=== PATIENT | male | born 1940 | race Caucasian/White ===

== ENCOUNTER → 2020-11-10 11:05 | Outpatient (CLI) | payer MEDICARE, SELFPAY ==
[2020-11-10] MEDS: COVID-19 VACC #1, MRNA(MOD) 100 MCG/0.5 ML VIAL IM (11:16)
--- NOTE | 2020-11-10 11:38 | PC.NURSE ---
Hx of anaphylaxis to penicillin; pt staying for 30 min observation
== END ==
PROVIDERS: Visit Provider Internal Medicine
DX: Z23 Encounter for immunization (principal)
CPT/HCPCS: 0011A; 91301

== ENCOUNTER → 2020-12-08 11:18 | Outpatient (CLI) | payer MEDICARE, SELFPAY ==
[2020-12-08] MEDS: COVID-19 VACC #2, MRNA(MOD) 100 MCG/0.5 ML VIAL IM (11:33)
== END ==
PROVIDERS: Visit Provider Internal Medicine
DX: Z23 Encounter for immunization (principal)
CPT/HCPCS: 0012A; 91301

== ENCOUNTER → 2021-08-25 09:54 | Outpatient (CLI) | payer MEDICARE, SELFPAY ==
[2021-08-25] MEDS: COVID-19 VACC #3, MRNA(MOD) 50 MCG/0.25 ML VIAL IM (10:00)
== END ==
PROVIDERS: Visit Provider Internal Medicine
DX: Z23 Encounter for immunization (principal)
CPT/HCPCS: 0013A; 91301

== ENCOUNTER → 2023-08-21 08:03 | Outpatient (CLI) | payer MEDICARE, OTHER, SELFPAY ==
[2023-08-21 08:55] LABS: Add Manual Diff / Slide Review NO; Basophils Absolute Auto 100 /uL (0-100); Basophils Percent Auto 1.3 % (0-2); Eosinophils Absolute Auto 200 /uL (0-450); Eosinophils Percent Auto 3.8 % (2-4); Hematocrit 42.2 % (41-53); Hemoglobin 14.3 g/dL (13.5-17.5); Lymphocytes Absolute Auto 1000 /uL (1100-4500); Lymphocytes Percent Auto 16.3 % (25-40); Mean Corpuscular HGB Conc 33.9 % (30-36); Mean Corpuscular Volume 91.4 fL (80-100); Monocytes Absolute Auto 700 /uL (0-900); Neutrophils Absolute Auto 4000 /uL (1500-7000); Neutrophils Percent Auto 67.6 % (50-75); Platelet Count 165 X10^3/uL (150-400); Red Blood Cell Count 4.61 X10^6/uL (4.5-5.9)
[2023-08-21 09:30] LABS: BUN Creatinine Ratio 14.7 (6-22); Blood Urea Nitrogen 14 mg/dL (9-20); Calcium 10.2 mg/dL (8.4-10.2); Carbon Dioxide 29 mmol/L (22-32); Chloride 100 mmol/L (98-107); Estimated Glomerular Filt Rate > 60 mL/min (>60); Glucose 115 mg/dL (80-110); HEMOLYSIS < 15 (0-50); Potassium 4.6 mmol/L (3.4-5.1); Sodium 137 mmol/L (137-145)
[2023-08-26 10:58] LABS: Percent Free Testosterone 2.56 % (1.50-4.20); Testosterone Free 9.87 ng/dL (5.00-21.00); Testosterone Total 385.4 ng/dL (264.0-916.0)
== END ==
PROVIDERS: PCP Family Medicine; Referring Provider Family Medicine; Visit Provider Family Medicine
DX: Z00.00 Encounter for general adult medical examination without abnormal findings (principal); N52.9 Male erectile dysfunction, unspecified
CPT/HCPCS: 36415; 80048; 84402; 84403; 85025

== ENCOUNTER → 2023-09-02 07:29 | Outpatient (CLI) | payer MEDICARE, OTHER, SELFPAY ==
[2023-09-03 08:13] LABS: Fecal Immunochemical Test Negative (Negative)
== END ==
PROVIDERS: PCP Family Medicine; Referring Provider Family Medicine; Visit Provider Family Medicine
DX: Z86.010 Personal history of colon polyps (principal)
CPT/HCPCS: 82274

== ENCOUNTER → 2023-12-31 13:46 | Outpatient (CLI) | payer MEDICARE, OTHER, SELFPAY ==
[2023-12-31 15:03] LABS: Hemoglobin A1C% w Est Avg Glu 5.5 % (4.0-6.0)
[2023-12-31 15:13] LABS: HEMOLYSIS < 15 (0-50); Iron 70 ug/dL (49-181)
[2023-12-31 15:25] LABS: Percent Iron Saturation 26 % (20-50); Total Iron Binding Capacity 272 ug/dL (261-462); Transferrin 223 mg/dL (206-381)
[2023-12-31 15:53] LABS: Ferritin 325 ng/mL (18-464)
[2023-12-31 16:07] LABS: Vitamin B12 Reflex MMA if <400 904 pg/mL (239-931)
== END ==
LOC: LAB 13:48
PROVIDERS: PCP Family Medicine; Referring Provider Family Medicine; Visit Provider Family Medicine
DX: R79.89 Other specified abnormal findings of blood chemistry (principal); Z86.39 Personal history of other endocrine, nutritional and metabolic disease; R53.83 Other fatigue; R73.09 Other abnormal glucose
CPT/HCPCS: 36415; 82607; 82728; 83036; 83540; 83550

== ENCOUNTER → 2024-05-05 12:30 | Outpatient (CLI) | payer MEDICARE, OTHER, SELFPAY ==
[2024-05-05 13:45] LABS: Add Manual Diff / Slide Review NO; Basophils Absolute Auto 0 /uL (0-100); Basophils Percent Auto 0.7 % (0-2); Eosinophils Absolute Auto 200 /uL (0-450); Eosinophils Percent Auto 4.6 % (2-4); Hematocrit 41.4 % (41-53); Hemoglobin 14.2 g/dL (13.5-17.5); Lymphocytes Absolute Auto 1000 /uL (1100-4500); Lymphocytes Percent Auto 22.3 % (25-40); Mean Corpuscular HGB Conc 34.2 % (30-36); Mean Corpuscular Hemoglobin 31.4 PG (26-34); Mean Corpuscular Volume 91.8 fL (80-100); Monocytes Absolute Auto 500 /uL (0-900); Monocytes Percent Auto 10.2 % (3-14); Neutrophils Absolute Auto 2800 /uL (1500-7000); Neutrophils Percent Auto 62.2 % (50-75); Platelet Count 168 X10^3/uL (150-400); Red Blood Cell Count 4.51 X10^6/uL (4.5-5.9); Red Cell Distribution Width 13.7 % (11.6-14.8); White Blood Cell Count 4.6 X10^3/uL (4.5-11.0)
[2024-05-05 14:58] LABS: Ferritin 307 ng/mL (18-464)
[2024-05-06 09:36] LABS: Homocysteine 10.6 umol/L (0.0-21.3)
== END ==
PROVIDERS: PCP Family Medicine; Referring Provider Naturopath; Visit Provider Naturopath
DX: E72.11 Homocystinuria (principal); R77.8 Other specified abnormalities of plasma proteins
CPT/HCPCS: 36415; 82728; 83090; 85025

== ENCOUNTER → 2024-10-29 15:44 | Outpatient (CLI) | payer MEDICARE, OTHER, SELFPAY ==
[2024-10-29 16:50] LABS: Prostate Specific Antigen 6.28 ng/mL (0.10-4.00)
== END ==
PROVIDERS: PCP Family Medicine; Referring Provider Physician Assistant; Visit Provider Physician Assistant
DX: R97.20 Elevated prostate specific antigen [PSA] (principal); M54.50 Low back pain, unspecified
CPT/HCPCS: 36415; 84153

== ENCOUNTER → 2024-12-04 10:37 | Outpatient (CLI) | payer MEDICARE, OTHER, SELFPAY ==
--- NOTE | 2024-12-04 10:38 | DI.MRI.S_ITS ---
PROCEDURE: MR LUMBAR SPINE WO CON INDICATIONS: Persistent LBP no improvement w/PT x 6 mos TECHNIQUE: Noncontrast sagittal T1 spin echo and T2 fast echo, sagittal STIR, and T2 fast spin echo through the lumbar spine. In cases with scoliosis, additional coronal T2 fast spin echo may be performed. COMPARISON: None. FINDINGS: Image quality: Excellent. Alignment and Curvature: There is normal bony alignment. Bone Marrow: Marrow is of normal overall signal. No acute vertebral body compression fractures. Spinal Cord: Conus medullaris terminates at the T12-L1 level. Visualized cord demonstrates normal signal and size. Paraspinous Soft Tissues: No paravertebral masses. T12-L1: Normal appearance. L1-L2: Normal appearance. L2-L3: Mild disc bulge. Mild facet hypertrophy. Borderline canal stenosis. No foraminal stenosis. L3-L4: Disc bulge. Facet and ligament hypertrophy. Moderate canal stenosis. No significant foraminal stenosis. L4-L5: Disc bulge. Prominent facet and ligament hypertrophy. Moderate to severe canal stenosis. Uyqg-[id number] bilateral foraminal stenosis. L5-S1: Disc bulge. Mild facet hypertrophy. No canal stenosis or significant foraminal stenosis. IMPRESSION: 1. Multilevel underlying facet arthropathy. 2. Canal stenosis is borderline at L2-L3, moderate at L3-L4, and moderate to severe at L4-L5. Dictated by: Jordan Barnett M.D. on 12/04/2024 at 16:31 Approved by: Jordan Barnett M.D. on 12/04/2024 at 16:33
== END ==
PROVIDERS: PCP Family Medicine; Referring Provider Physician Assistant; Visit Provider Physician Assistant
DX: M47.816 Spondylosis without myelopathy or radiculopathy, lumbar region (principal); M47.817 Spondylosis without myelopathy or radiculopathy, lumbosacral region; M48.061 Spinal stenosis, lumbar region without neurogenic claudication; M54.50 Low back pain, unspecified
CPT/HCPCS: 72148

== ENCOUNTER → 2025-03-25 07:56 | Outpatient (CLI) | payer MEDICARE, OTHER, SELFPAY ==
[2025-03-25 08:21] LABS: Add Manual Diff / Slide Review NO; Basophils Absolute Auto 0 /uL (0-100); Basophils Percent Auto 0.6 % (0-2); Eosinophils Absolute Auto 300 /uL (0-450); Eosinophils Percent Auto 5.4 % (2-4); Hematocrit 43.8 % (41-53); Hemoglobin 14.6 g/dL (13.5-17.5); Lymphocytes Absolute Auto 1100 /uL (1100-4500); Lymphocytes Percent Auto 22.8 % (25-40); Mean Corpuscular HGB Conc 33.4 % (30-36); Mean Corpuscular Hemoglobin 31.1 PG (26-34); Monocytes Absolute Auto 500 /uL (0-900); Monocytes Percent Auto 11.2 % (3-14); Neutrophils Absolute Auto 2900 /uL (1500-7000); Platelet Count 172 X10^3/uL (150-400); Red Blood Cell Count 4.71 X10^6/uL (4.5-5.9); Red Cell Distribution Width 14.4 % (11.6-14.8); White Blood Cell Count 4.8 X10^3/uL (4.5-11.0)
[2025-03-25 08:37] LABS: HEMOLYSIS < 15 (0-50); Iron 104 ug/dL (49-181)
[2025-03-25 08:40] LABS: Alanine Aminotransferase 22 IU/L (<50); Albumin 4.4 g/dL (3.5-5.0); Albumin Globulin Ratio 1.6 (1.0-2.8); Alkaline Phosphatase 55 U/L (38-126); Aspartate Aminotransferase 27 IU/L (17-59); BUN Creatinine Ratio 18.4 (6-22); Bilirubin Total 0.9 mg/dL (0.2-1.3); Blood Urea Nitrogen 19 mg/dL (9-20); Calcium 9.5 mg/dL (8.4-10.2); Carbon Dioxide 27 mmol/L (22-32); Chloride 104 mmol/L (98-107); Estimated Glomerular Filt Rate > 60 mL/min (>60); Globulin 2.7 g/dL (1.7-4.1); Glucose 95 mg/dL (70-99); Potassium 4.5 mmol/L (3.4-5.1); Sodium 138 mmol/L (137-145); Total Protein 7.1 g/dL (6.3-8.2)
[2025-03-25 08:49] LABS: Percent Iron Saturation 38 % (20-50); Total Iron Binding Capacity 275 ug/dL (261-462); Transferrin 215 mg/dL (206-381)
[2025-03-25 09:12] LABS: HEMOLYSIS < 15 (0-50); Prostate Specific Antigen Scrn 7.51 ng/mL (0.1-4.0)
[2025-03-25 09:28] LABS: Vitamin B12 > 1000 pg/mL (239-931)
== END ==
PROVIDERS: PCP Family Medicine; Referring Provider Family Medicine; Visit Provider Family Medicine
DX: R97.20 Elevated prostate specific antigen [PSA] (principal); Z12.5 Encounter for screening for malignant neoplasm of prostate; R39.9 Unspecified symptoms and signs involving the genitourinary system; Z86.39 Personal history of other endocrine, nutritional and metabolic disease
CPT/HCPCS: 36415; 80053; 82607; 83090; 83540; 83550; 85025; G0103

== ENCOUNTER 2025-07-06 11:51 | Day surgery (SDC) | payer MEDICARE, OTHER, SELFPAY ==
--- NOTE | 2025-07-06 | PATH_ITS ---
[facility] Accession Number: [id number] No. of containers..04 Tissue . 01 Material submitted: . PART A: stomach - ANTRAL PART B: esophagus - ESOPHAGUS PART C: colon - CECAL MASS PART D: colon - COLON,ASCENDING POLYP . 01 Diagnosis: A. ANTRUM: Gastric mucosa with focal mild chronic gastritis. No Helicobacter pylori organisms identified on H/E slide. No intestinal metaplasia, dysplasia, or malignancy. . B. 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 No dysplasia or malignancy. . C. CECAL MASS: Fragments of tubulovillous adenoma. No high-grade dysplasia or malignancy. Deeper level examination performed. See comment. . D. ASCENDING COLON POLYP: Tubular adenoma. [facility] 07/13/2025 1155 Local . 01 Comment: B. 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 Correlation with endoscopic appearance is recommended. . C. The clinical appearance of mass is noted and correlation with clinical appearance is recommended to ensure that the lesion is removed to rule out the possibility of an unsampled higher grade lesion. No invasive malignancy is seen in the biopsy sections. . 01 Electronically signed: . Brittny King MD, Pathologist NPI- [id number] . 01 Gross description: . Received are four formalin-filled containers each labeled with the patient's name. . A. In a container labeled antral, are two fragments of dixon, soft tissue which range in size from 0.2 x 0.2 x 0.2 cm to 0.3 x 0.2 x 0.2 cm. All fragments are totally submitted in cassette A1. B. In a container labeled esophageal biopsies, are three fragments of dixon, soft tissue which range in size from 0.2 x 0.2 x 0.2 cm to 0.4 x 0.2 x 0.2 cm. All fragments are totally submitted in cassette B1. C. In a container labeled cecal mass, are four fragments of dixon, soft tissue which range in size from 0.1 x 0.1 x 0.1 cm to 0.8 x 0.4 x 0.4 cm. All fragments are totally submitted in cassete C1. D. In a container labeled ascending colon polyp, is one fragment of dixon, soft tissue which measures 0.3 x 0.2 x 0.2 cm. The specimen is totally submitted in cassette D1. ([id number]) /JANE 07/09/2025 0544 Local . 01 Pathologist provided ICD-10: K29.70, K22.70, D12.0, D12.2 . 01 CPT . 392438, 291297, 314834, [id number] Specimen Comment: A courtesy copy of this report has been sent to [facility] Performed at: [address] [address], [place], [place] [id number] MD Cristi Ackerman MD Phone: [phone]
--- NOTE | 2025-07-06 08:42 | PM.HP.IH.1 ---
History of Present Illness History of Present Illness Date Patient Seen: 07/06/25 Time Patient Seen: 08:42 Chief complaint: EGD & Colonoscopy w/poss bx Narrative: 84yo M presents for EGD/Colonoscopy today. EGD for Barretts/GERD. Colonoscopy for screening. [facility] Medical History (Updated 07/06/25 @ 08:44 by Mahad Almonte MD) High prostate specific antigen (PSA) History of hemochromatosis Spinal stenosis at L4-L5 level Lower urinary tract symptoms (LUTS) Hx of colonic polyps Stiffness of left shoulder joint Fractures Chicken pox (~1951) Hearing loss (~2005) Diverticular disease (~2015) Colon polyps (~2015) Campuzano's esophagus (~2015) Elevated blood pressure reading without diagnosis of hypertension Erectile dysfunction Post herpetic neuralgia (~2021) Surgical History Anesthesia History of thumb surgery Family History Father Cancer Mother Cancer Grandfather Dementia Grandfather History of heart disease Social History (Updated 05/12/25 @ 09:39 by Concha eMlendez MA) household members: none occupational status: previously employed Meds Home Medications and Allergies Home Medications ?Medication ?Instructions ?Recorded ?Confirmed ?Type bismuth subsalicylate 262 mg/15 mL 524 mg PO Q1H PRN 08/07/22 05/12/25 History oral suspension (Pepto-Bismol) fluticasone propionate 50 1 spray intranasal DAILY 08/07/22 05/12/25 History mcg/actuation nasal spray,suspension (Flonase Allergy Relief) loratadine 10 mg tablet (Claritin) 10 mg PO DAILY 08/07/22 05/12/25 History mecobalamin (vitamin B12) 500 mcg 500 mcg PO DAILY 12/31/23 05/12/25 History chewable tablet cholecalciferol (vitamin D3) 10 10 mcg PO DAILY 05/07/25 05/12/25 History mcg (400 unit) capsule multivitamin (Daily Multi-Vitamin 1 tab PO DAILY 05/07/25 05/12/25 History tablet) sodium,potassium,mag sulfates 17.5 See Rx Instructions PO .COMPLEX 05/27/25 Rx gram-3.13 gram-1.6 gram oral soln #354 mL (Suprep Bowel Prep Kit) Allergies Allergy/AdvReac Type Severity Reaction Status Date / Time Penicillins Allergy Severe Anaphylaxis Verified 05/12/25 09:42 Exam Narrative Exam Narrative: Const General: comfortable Orientation: alert and oriented x3 Resp Effort & Inspection: normal respiratory effort and able to speak in complete sentences Cardio Rate: regular rate GI Palpation: soft (NT) Extrem General: no pedal edema and no calf tenderness Assessment & Plan Assessment and plan (1) Campuzano's esophagus: Qualifiers: 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 The risks, benefits and options regarding the procedure were explained to the patient in detail. Risk discussion included but not limited to: bleeding, perforation, unable to reach cecum, missed lesion.? The patient was encouraged to ask questions and they were answered to their satisfaction. The patient understands and is agreeable to proceed. Time-Based Coding :: [TOTAL MINUTES] spent with patient and on the chart (including review of chart, obtaining history, exam, reviewing outside data, placing orders, documenting exam and treatment plan, and counseling patient) on [DATE]. 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
[2025-07-06] MEDS: LACTATED RINGERS 1,000 ML 42 ML IV (12:21)
[2025-07-06 12:24] VITALS: BP 181/88; PULSE 72; RESP 16; TEMP 36.3; O2SAT 97
--- NOTE | 2025-07-06 13:12 | PM.OP.EC ---
Operative Date/Time/Diagnoses Date of procedure: 07/06/25 Time of procedure: 13:52 Pre-op diagnosis: H/O Campuzano's, screening colonoscopy Post-op diagnosis: other (LA Grade B esophagitis, hiatal hernia, antral gastritis, 1cm pedunculated polyp in cecum) Procedure & Clinicians Study performed: EGD with biopsy, colonoscopy with polypectomy Same procedure(s) as scheduled: Yes Indications: 84yo M, h/o Campuzano's, due for screening colonoscopy Surgeon: Mahad Almonte Anesthesia Type: MAC +/- Procedure Notes SCOAP/Timeout: Performed Procedure in detail: EGD Informed consent was obtained. The procedure, its risks, benefits, and alternatives were discussed. Patient understood and agreed to proceed. The patient was placed in the left lateral decubitus position with head elevated. Sedation given per anesthesia. The video endoscope was inserted into the oropharynx and guided under direct vision into the esophagus, stomach, and duodenum which were carefully examined. The scope was retroflexed to examine the hiatus and gastroesophageal junction. Antral biopsies were obtained for Helicobacter pylori. The patient tolerated the procedure very well. There were no apparent complications. Significant EGD findings: Z-line noted at: 36cm Small 2cm hiatal hernia LA Grade B esophagitis, biopsies taken to r/o Barretts Mild antral gastritis, biopsies taken to r/o H pylori No esophageal stricture or mass Duodenum normal No gastric mass or ulcer Colonoscopy Patient placed in left lateral recumbent position. Time out was performed. Procedural sedation was administered by anesthesia. Examination began with a thorough inspection of the perianal area. There was no evidence of fissures, fistulae, external hemorrhoids or cutaneous malignancy. The colonoscope was then placed into the rectum and the lumen was insufflated with carbon dioxide. The scope was carefully advanced forward. Ultimately the cecum was intubated and confirmed by identification of the ileocecal valve, the appendiceal orifice and the confluence of the taenia. The scope was then slowly withdrawn examining the colon thoroughly in all directions. In the rectum, retroflexion of the scope was performed for inspection of the distal rectum and anal canal. ?Significant colonoscopy findings: ?1. Quality of the preparation-good, [place] 2-3, improved with irrigation/suction ?2. 1cm pedunculated polyp in cecum, removed with hot snare and retrieved for pathology 3. 3mm sessile polyp in ascending colon, benign appearing, biopsied with cold snare and sent to pathology Scope withdrawal time: 12 Findings: gastritis, polyp and other findings (LA Grade B esophagitis, 2cm hiatal hernia, ) Specimen(s): other (antral biopsy, esophageal biopsy, cecal polyp, ascending colon polyp) Complications: none Impression: 2cm hiatal hernia LA Grade B esophagitis, biopsied Mild antral gastritis, biopsied 1cm pedunculated polyp in cecum, removed and retrieved for path 3mm sessile polyp in ascending colon, biopsy taken Post-procedure Recommendations: Colonscopy in 5 years (If continued screening desired) and Colonscopy in 10 years Plan for aftercare: PACU then home Follow up: as needed Disposition: PACU
[2025-07-06 13:50] VITALS: BP 132/62; PULSE 67; RESP 16; TEMP 36.2; O2SAT 94
[2025-07-06 13:54] VITALS: BP 133/65; PULSE 63; RESP 16; O2SAT 93
[2025-07-06 13:59] VITALS: BP 134/67; PULSE 54; RESP 16; O2SAT 93
[2025-07-06 14:09] VITALS: BP 137/74; PULSE 64; RESP 16; O2SAT 97
== END 2025-07-06 14:16 | disposition home or self-care (01) ==
PROVIDERS: PCP Family Medicine; Referring Provider Surgery; Visit Provider Surgery
PROC: 0DJ08ZZ Inspection of Upper Intestinal Tract, Via Natural or Artificial Opening Endoscopic (ICD-10-PCS; CPT 45385; principal; 2025-07-06 13:30)
PROC: 0DJD8ZZ Inspection of Lower Intestinal Tract, Via Natural or Artificial Opening Endoscopic (ICD-10-PCS; CPT 45378; 2025-07-06 13:30)
DX: Z12.11 Encounter for screening for malignant neoplasm of colon (principal); Z87.19 Personal history of other diseases of the digestive system; K29.70 Gastritis, unspecified, without bleeding; K44.9 Diaphragmatic hernia without obstruction or gangrene; K20.90 Esophagitis, unspecified without bleeding; K22.70 Barrett's esophagus without dysplasia; D12.0 Benign neoplasm of cecum; D12.2 Benign neoplasm of ascending colon
CPT/HCPCS: 45385; 43239; J2405; J2704

== ENCOUNTER → 2025-07-19 09:00 | Outpatient (CLI) | payer MEDICARE, OTHER, SELFPAY ==
[2025-07-19 10:46] LABS: Add Manual Diff / Slide Review NO; Hematocrit 41.5 % (41-53); Hemoglobin 14.2 g/dL (13.5-17.5); Lymphocytes Absolute Auto 1200 /uL (1100-4500); Mean Corpuscular HGB Conc 34.3 % (30-36); Mean Corpuscular Hemoglobin 30.9 PG (26-34); Mean Corpuscular Volume 90.1 fL (80-100); Platelet Count 185 X10^3/uL (150-400)
== END ==
PROVIDERS: PCP Family Medicine; Referring Provider Surgery; Visit Provider Surgery
DX: K62.5 Hemorrhage of anus and rectum (principal)
CPT/HCPCS: 36415; 85025